=== PATIENT | male | born 1950 | race African-American/Black ===

== ENCOUNTER 2016-08-28 13:57 | Emergency (ER) | payer OTHER ==
[2016-08-28] MEDS ORDERED: traMADol HCl 50 MG TAB ONE (14:47)
[2016-08-28] MEDS ORDERED: Benzonatate 100 MG CAP ONE (14:47)
[2016-08-28] MEDS ORDERED: Azithromycin 250 MG TAB ONE (14:47)
--- NOTE | 2016-08-28 15:09 | ERRECORD ---
[facility] EMERGENCY RECORD HPI COUGH (14:40 LLDO) CHIEF COMPLAINT: Patient presents for evaluation of cough, productive of yellow sputum, Patient presents for evaluation of chest congestion. HISTORIAN: History provided by patient, also having flare of chronic arthritis, especially in shoulders. can't sleep d.t. pain. LOCATION: Symptoms are generalized. QUALITY: Denies choking sensation, Denies tightness, Denies wheezing, Pain is dull in nature, described as aching, described as SHARPER WITH COUGHING OR PALPATION. SEVERITY: Maximum severity of symptoms moderate, Currently symptoms are moderate. TIME COURSE: Gradual onset of symptoms, Symptoms are worsening, are constant. ASSOCIATED WITH: Associated symptoms reviewed. EXACERBATED BY: Patient's condition exacerbated by exercise. RELIEVED BY: Patient's condition relieved by nothing. ROS CONSTITUTIONAL: Historian reports fatigue, reports malaise. (14:43 LLDO) EYES: Negative eye review of systems, Historian denies eye pain, denies eye redness, denies eye discharge. (14:50 LLDO) ENT: Historian reports sore throat. (14:43 LLDO) CARDIOVASCULAR: Historian reports dyspnea on exertion. (14:43 LLDO) RESPIRATORY: Historian reports cough, reports sputum. described as thick, green, yellow, Historian denies stridor, denies wheezing. (14:43 LLDO) GI: Historian reports abdominal pain. (14:43 LLDO) MUSCULOSKELETAL: Historian reports arthralgias, denies fall, reports injury, denies joint redness, reports joint stiffness, denies joint swelling, reports myalgias, reports neck pain. (14:43 LLDO) NEUROLOGIC: Negative neurologic review of systems, Historian denies confusion, denies focal weakness, denies mental status changes, denies sensory changes. (14:50 LLDO) HEMO/LYMPHATIC: Normal hematologic/lymphatic system review, Historian denies abnormal blood clotting, denies gum bleeding, denies petechiae. (14:50 LLDO) ALLERGIC/IMMUNOLOGIC: Normal allergy/immunologic system review, Historian denies eczema, denies environmental allergies, denies food allergies. (14:50 LLDO) PSYCHIATRIC: Negative psychiatric review of systems, Historian denies alcohol abuse, denies anxiety, denies depression, denies drug abuse, denies hallucinations. (14:50 LLDO) NOTES: All systems reviewed, negative except as described above. (14:43 LLDO) &a-1R&a+25V*p+0X*e2828F*c202B*c15G*c2P*p-0X&a-25V&a+1R Name: Luigi Gutierrez : 1950 M66 MedRec: [id number] AcctNum: [id number] Prepared: Amna Aug 28, 2016 15:10 by Interface Page 1 of 4 pMD [facility] EMERGENCY RECORD PAST MEDICAL HISTORY MEDICAL HISTORY: Tetanus immunization up to date, FLU vaccine not up to date, Pneumococcal vaccine not up to date, MEdical history includes cardiac history, Past medical history includes history of diabetes, Type II, Past medical history includes history of hyperlipidemia, high cholesterol, Past medical history includes history of hypertension, which has been treated. 7 COPD. Past medical history is not significant. ([place] Aug 28, 2016 14:05 MDEB) MALE SURGICAL HISTORY: Surgical history of orthopedic surgery, LEFT KNEE. HERNIA REPAIR TO RIGHT GROIN. ([place] Aug 28, 2016 14:05 MDEB) SOCIAL HISTORY: Patient denies alcohol use, Patient denies drug use, Patient currently uses tobacco, Smokes cigars daily, Patient smokes 1 pack per day. Patient drinks socially. ([place] Aug 28, 2016 14:05 MDEB) FAMILY HISTORY: Family istory is not significant. ([place] Aug 28, 2016 14:05 MDEB) NOTES: Nursing records reviewed, Agree with nursing records, Medication list reviewed. (14:49 LLDO) KNOWN ALLERGIES Penicillins CURRENT MEDICATIONS No recorded medications VITAL SIGNS (14:03 MDEB) VITAL SIGNS: BP: 179/118, Pulse: 112, Resp: 20, Temp: 98.3 (Tympanic), O2 sat: 100, Time: 08/28/2016 14:03. PHYSICAL EXAM CONSTITUTIONAL: Vital Signs Reviewed, Patient afebrile, Pulse, tachycardic, 112, Blood pressure, BP IS ELEVATED. didn't take his meds this morning, Respiratory rate normal, Normal pulse oximetry, Patient appears, uncomfortable, Patient appears, in moderate pain distress, Patient alert and oriented to person, place and time, Nursing notes reviewed. (14:45 LLDO) HEAD: Head exam normal, Head exam included findings of head atraumatic, normocephalic. (14:50 LLDO) EYES: Eye exam normal, Eye exam included findings of eyelids normal to inspection, Pupils equally round and reactive to light, Extraocular muscles intact. (14:50 LLDO) ENT: Ear exam normal, Nose exam normal, Pharynx, injected bilaterally, Uvula exam normal, Mouth exam normal, teeth normal, Sinus exam included findings of frontal sinuses normal, Maxillary sinuses with. (14:45 LLDO) NECK: Neck exam included findings of normal range of motion, &a-1R&a+25V*p+0X*m4541F*c202B*c15G*c2P*p-0X&a-25V&a+1R Name: Luigi Gutierrez : 1950 M66 MedRec: [id number] AcctNum: [id number] Prepared: Amna Aug 28, 2016 15:10 by Interface Page 2 of 4 pMD [facility] EMERGENCY RECORD Trachea midline, Thyroid normal, no meningeal signs, no cervical adenopathy, Tenderness, midline, to the paraspinal muscles. (14:45 LLDO) RESPIRATORY CHEST: Respiratory exam included findings of no respiratory distress. (14:45 LLDO) CARDIOVASCULAR: Cardiovascular assessment normal, Cardiovascular exam included findings of heart rate regular rate and rhythm, Heart sounds normal. (14:50 LLDO) ABDOMEN MALE: Abdominal exam normal, Abdominal exam included findings of abdomen nontender, Bowel sounds normal, no peritoneal signs. (14:50 LLDO) BACK: Back exam normal, Back exam included findings of normal inspection, range of motion normal. (14:50 LLDO) UPPER EXTREMITY: Upper extremity exam included findings of inspection normal, Range of motion, limited to bilateral shoulders, right side worse, Motor strength normal, Sensation intact, Brachial pulse normal, Radial pulse normal. (14:45 LLDO) LOWER EXTREMITY: Lower extremity exam normal, Lower extremity exam included findings of inspection normal, Range of motion normal. (14:50 LLDO) NEURO: Neuro exam normal, Neuro exam findings include patient oriented to person, place and time, Speech normal, [place] coma scale 15. (14:50 LLDO) SKIN: Skin exam normal, Skin exam included findings of skin warm, dry, and normal in color, no rash. (14:50 LLDO) PSYCHIATRIC: Psychiatric exam normal, Psychiatric exam included findings of patient oriented to person place and time, Normal affect, Judgment normal. (14:50 LLDO) MEDICATION ADMINISTRATION SUMMARY Drug Name: Zithromax oral, Dose Ordered: 500 mg, Route: Oral, Status: Given, Time: 14:49 08/28/2016, Drug Name: Ina Perles, Dose Ordered: 200 mg, Route: Oral, Status: Given, Time: 14:48 08/28/2016, Drug Name: Ultram, Dose Ordered: 2 tab(s), Route: Oral, Status: Given, Time: 14:48 08/28/2016, Detailed record available in Medication Service section. PROBLEM LIST No recorded problems DIAGNOSIS (14:56 LLDO) FINAL: PRIMARY: Acute bronchitis, ADDITIONAL: Hypertension, Osteoarthritis. PRESCRIPTION Phenergan DM: SYRUP : : ORAL : Quantity: 1-2 Unit: teaspoon Route: ORAL Schedule: every 4 hours prn Dispense: 180 &a-1R&a+25V*p+0X*g9965O*c202B*c15G*c2P*p-0X&a-25V&a+1R Name: Luigi Gutierrez : 1950 M66 MedRec: [id number] AcctNum: [id number] Prepared: Amna Aug 28, 2016 15:10 by Interface Page 3 of 4 pMD [facility] EMERGENCY RECORD Unit: mL May substitute. Refills: 2 . (14:39 LLDO) NOTES: No Refills. (14:39 LLDO) predniSONE oral: TABLET : 20 mg : ORAL : Quantity: * Unit: Route: ORAL Schedule: See Notes Dispense: 2O May substitute. Refills: No Refills . (14:39 LLDO) NOTES: 3 TABS PER DAY FOR 3 DAYS, THEN 2 TABS PER DAY FOR 3 DAYS, THEN ONE TAB PER DAY UNTIL GONE No Refills. (14:39 LLDO) Zithromax Z-Dallin: CAPSULE (HARD, SOFT, ETC.) : 250 mg : ORAL : Quantity: * Unit: Route: ORAL Schedule: See Notes Dispense: 1PK May substitute. Refills: No Refills . (14:39 LLDO) NOTES: TAKE DIRECTED ON PACKAGE No Refills. (14:39 LLDO) Ultram: TABLET : 50 mg : ORAL : Quantity: 1-2 Unit: tab(s) Route: ORAL Schedule: every 4 hours prn Dispense: 100 Unit: tab(s) May substitute. Refills: 2 . (14:53 LLDO) NOTES: No Refills. (14:53 LLDO) DISPOSITION PATIENT: Disposition Type: Discharge, Disposition: *Discharge Home. (14:38 LLDO) Patient left the department. (15:08 MDJT) [place]: RICHARDDO=MD Pravin, Nguyễn MDEB=ROBERT Burnette, Jeana &a-1R&a+25V*p+0X*v9244E*c202B*c15G*c2P*p-0X&a-25V&a+1R Name: Luigi Gutierrez : 1950 M66 MedRec: [id number] AcctNum: [id number] Prepared: Amna Aug 28, 2016 15:10 by Interface Page 4 of 4 pMD MTDD
--- NOTE | 2016-08-28 15:20 | PICIS ---
[facility] EMERGENCY RECORD TRIAGE (MonAug 28, 2016 14:05 MDEB) PATIENT: NAME: Luigi Gutierrez, AGE: 66, GENDER: male, : Mon1950, TIME OF GREET: MonAug 28, 2016 13:58, PREFERRED LANGUAGE: Bengali, RACE: Black or , ETHNICITY: Not or , FALL RISK: NO, ECODE BILLING MAP: [facility] ER, SSN: [id number], Zip Code: [address], KG WEIGHT: 83.01, PHONE: , , , PERSON ID: [id number], PCP: OR CLINIC CASE. (MonAug 28, 2016 14:05 MDEB) TRIAGE NOTES: PRODUCTIVE COUGH, CONGESTION, AARTHRITIS PAIN IN SHOULDERS WORSE. (MonAug 28, 2016 14:05 MDEB) COMPLAINT: PAIN IN NECK/SHOULDERS. (MonAug 28, 2016 14:05 MDEB) ADMISSION: URGENCY: 4 Non Urgent, ADMISSION SOURCE: Home, TRANSPORT: Walk-in, BED: TRIAGE. (MonAug 28, 2016 14:05 MDEB) PAIN: Patient complains of pain described as, aching, on a scale 0-10 patient rates pain as 8. (MonAug 28, 2016 14:05 MDEB) IMMUNIZATIONS: Tetanus immunization up to date. (MonAug 28, 2016 14:05 MDEB) TRIAGE SCREENING: Patient denies suicidal ideation, Patient denies presence of domestic violence. (MonAug 28, 2016 14:05 MDEB) PROVIDERS: TRIAGE NURSE: Jeana Burnette RN. (MonAug 28, 2016 14:05 MDEB) VITAL SIGNS: BP 179/118, Pulse 112, Resp 20, Temp 98.3, (Tympanic), O2 Sat 100, Time 08/28/2016 14:03. (14:03 MDEB) PREVIOUS VISIT ALLERGIES: Penicillins. (MonAug 28, 2016 14:05 MDEB) KNOWN ALLERGIES Penicillins CURRENT MEDICATIONS No recorded medications VITAL SIGNS (14:03 MDEB) VITAL SIGNS: BP: 179/118, Pulse: 112, Resp: 20, Temp: 98.3 (Tympanic), O2 sat: 100, Time: 08/28/2016 14:03. NURSING PROCEDURE: DISCHARGE NOTE (14:55 MDEB) DISCHARGE: Patient discharged to home, ambulating without assistance, driving self, unaccompanied, Summary of Care printed/ provided, Patient requested and was provided an electronic copy of Discharge Instructions, Transition record given to patient, Discharge instructions given to patient, Simple or moderate discharge teaching performed, MEDICATIONS, Prescriptions given and instructions on side effects given, Above person(s) verbalized understanding of discharge instructions and follow-up care, Patient treated and evaluated by physician. BELONGINGS: Belongings remain with patient, Valuables remain with patient. &a-1R&a+25V*p+0X*a9037C*c202B*c15G*c2P*p-0X&a-25V&a+1R Name: Luigi Gutierrez : 1950 M66 MedRec: [id number] AcctNum: [id number] Prepared: Amna Aug 28, 2016 15:10 by Interface Page [address] [facility] EMERGENCY RECORD NOTES: Emotional support needed and given, Patient tolerated procedure well. SAFETY: Side rails up, Cart/Stretcher in lowest position, Family at bedside, Call light within reach, Hospital ID band on. MEDICATION ADMINISTRATION SUMMARY Drug Name: Zithromax oral, Dose Ordered: 500 mg, Route: Oral, Status: Given, Time: 14:49 08/28/2016, Drug Name: Tessalon Perles, Dose Ordered: 200 mg, Route: Oral, Status: Given, Time: 14:48 08/28/2016, Drug Name: Ultram, Dose Ordered: 2 tab(s), Route: Oral, Status: Given, Time: 14:48 08/28/2016, Detailed record available in Medication Service section. MEDICATION SERVICE Tessalon Perles: Order: Tessalon Perles (benzonatate) - Dose: 200 mg : Oral Schedule: Now Ordered by: Nguyễn Costello MD Entered by: MD Amna Piper Aug 28, 2016 14:36 , Acknowledged by: ROBERT Hunter Aug 28, 2016 14:46 Documented as given by: ROBERT Hunter Aug 28, 2016 14:48 Patient, Medication, Dose, Route and Time verified prior to administration. Amount given: 200 MG, Site: Medication administered P.O., Correct patient, time, route, dose and medication confirmed prior to administration, Patient advised of actions and side-effects prior to administration, Allergies confirmed and medications reviewed prior to administration, Patient in position of comfort, Cart in lowest position. Ultram: Order: Ultram (tramadol HCl) - Dose: 2 tab(s) : Oral Schedule: Now Ordered by: Nguyễn Costello MD Entered by: MD Amna Piper Aug 28, 2016 14:36 , Acknowledged by: ROBERT Hunter Aug 28, 2016 14:46 Documented as given by: ROBERT Hunter Aug 28, 2016 14:48 Patient, Medication, Dose, Route and Time verified prior to administration. Amount given: 2 TABS, Site: Medication administered P.O., Correct patient, time, route, dose and medication confirmed prior to administration, Patient advised of actions and side-effects prior to administration, Allergies confirmed and medications reviewed prior to administration, Patient in position of comfort, Cart in lowest position. Zithromax oral: Order: Zithromax oral (azithromycin) - Dose: 500 mg : Oral Schedule: Now Ordered by: Nguyễn Costello MD &a-1R&a+25V*p+0X*g9508H*c202B*c15G*c2P*p-0X&a-25V&a+1R Name: Luigi Gutierrez : 1950 M66 MedRec: [id number] AcctNum: [id number] Prepared: Amna Aug 28, 2016 15:10 by Interface Page [address] [facility] EMERGENCY RECORD Entered by: MD Amna Piper Aug 28, 2016 14:36 Documented as given by: ROBERT Hunter Aug 28, 2016 14:49 Patient, Medication, Dose, Route and Time verified prior to administration. Amount given: 500 MG, Site: Medication administered P.O., Correct patient, time, route, dose and medication confirmed prior to administration, Patient advised of actions and side-effects prior to administration, Allergies confirmed and medications reviewed prior to administration, Patient in position of comfort, Cart in lowest position. HPI COUGH (14:40 LLDO) CHIEF COMPLAINT: Patient presents for evaluation of cough, productive of yellow sputum, Patient presents for evaluation of chest congestion. HISTORIAN: History provided by patient, also having flare of chronic arthritis, especially in shoulders. can't sleep d.t. pain. LOCATION: Symptoms are generalized. QUALITY: Denies choking sensation, Denies tightness, Denies wheezing, Pain is dull in nature, described as aching, described as SHARPER WITH COUGHING OR PALPATION. SEVERITY: Maximum severity of symptoms moderate, Currently symptoms are moderate. TIME COURSE: Gradual onset of symptoms, Symptoms are worsening, are constant. ASSOCIATED WITH: Associated symptoms reviewed. EXACERBATED BY: Patient's condition exacerbated by exercise. RELIEVED BY: Patient's condition relieved by nothing. ROS CONSTITUTIONAL: Historian reports fatigue, reports malaise. (14:43 LLDO) EYES: Negative eye review of systems, Historian denies eye pain, denies eye redness, denies eye discharge. (14:50 LLDO) ENT: Historian reports sore throat. (14:43 LLDO) CARDIOVASCULAR: Historian reports dyspnea on exertion. (14:43 LLDO) RESPIRATORY: Historian reports cough, reports sputum. described as thick, green, yellow, Historian denies stridor, denies wheezing. (14:43 LLDO) GI: Historian reports abdominal pain. (14:43 LLDO) MUSCULOSKELETAL: Historian reports arthralgias, denies fall, reports injury, denies joint redness, reports joint stiffness, denies joint swelling, reports myalgias, reports neck pain. (14:43 LLDO) NEUROLOGIC: Negative neurologic review of systems, Historian denies confusion, denies focal weakness, denies mental status changes, denies sensory changes. (14:50 LLDO) &a-1R&a+25V*p+0X*s0358T*c202B*c15G*c2P*p-0X&a-25V&a+1R Name: Luigi Gutierrez : 1950 M66 MedRec: [id number] AcctNum: [id number] Prepared: Amna Aug 28, 2016 15:10 by Interface Page [address] [facility] EMERGENCY RECORD HEMO/LYMPHATIC: Normal hematologic/lymphatic system review, Historian denies abnormal blood clotting, denies gum bleeding, denies petechiae. (14:50 LLDO) ALLERGIC/IMMUNOLOGIC: Normal allergy/immunologic system review, Historian denies eczema, denies environmental allergies, denies food allergies. (14:50 LLDO) PSYCHIATRIC: Negative psychiatric review of systems, Historian denies alcohol abuse, denies anxiety, denies depression, denies drug abuse, denies hallucinations. (14:50 LLDO) NOTES: All systems reviewed, negative except as described above. (14:43 LLDO) PAST MEDICAL HISTORY MEDICAL HISTORY: Tetanus immunization up to date, FLU vaccine not up to date, Pneumococcal vaccine not up to date, MEdical history includes cardiac history, Past medical history includes history of diabetes, Type II, Past medical history includes history of hyperlipidemia, high cholesterol, Past medical history includes history of hypertension, which has been treated. 7 COPD. Past medical history is not significant. ([place] Aug 28, 2016 14:05 MDEB) MALE SURGICAL HISTORY: Surgical history of orthopedic surgery, LEFT KNEE. HERNIA REPAIR TO RIGHT GROIN. ([place] Aug 28, 2016 14:05 MDEB) SOCIAL HISTORY: Patient denies alcohol use, Patient denies drug use, Patient currently uses tobacco, Smokes cigars daily, Patient smokes 1 pack per day. Patient drinks socially. ([place] Aug 28, 2016 14:05 MDEB) FAMILY HISTORY: Family istory is not significant. ([place] Aug 28, 2016 14:05 MDEB) NOTES: Nursing records reviewed, Agree with nursing records, Medication list reviewed. (14:49 LLDO) PHYSICAL EXAM CONSTITUTIONAL: Vital Signs Reviewed, Patient afebrile, Pulse, tachycardic, 112, Blood pressure, BP IS ELEVATED. didn't take his meds this morning, Respiratory rate normal, Normal pulse oximetry, Patient appears, uncomfortable, Patient appears, in moderate pain distress, Patient alert and oriented to person, place and time, Nursing notes reviewed. (14:45 LLDO) HEAD: Head exam normal, Head exam included findings of head atraumatic, normocephalic. (14:50 LLDO) EYES: Eye exam normal, Eye exam included findings of eyelids normal to inspection, Pupils equally round and reactive to light, Extraocular muscles intact. (14:50 LLDO) ENT: Ear exam normal, Nose exam normal, Pharynx, injected bilaterally, Uvula exam normal, Mouth exam normal, teeth normal, Sinus exam included findings of frontal sinuses normal, Maxillary sinuses with. (14:45 LLDO) &a-1R&a+25V*p+0X*g2129T*c202B*c15G*c2P*p-0X&a-25V&a+1R Name: Luigi Gutierrez : 1950 M66 MedRec: [id number] AcctNum: [id number] Prepared: Amna Aug 28, 2016 15:10 by Interface Page [address] [facility] EMERGENCY RECORD NECK: Neck exam included findings of normal range of motion, Trachea midline, Thyroid normal, no meningeal signs, no cervical adenopathy, Tenderness, midline, to the paraspinal muscles. (14:45 LLDO) RESPIRATORY CHEST: Respiratory exam included findings of no respiratory distress. (14:45 LLDO) CARDIOVASCULAR: Cardiovascular assessment normal, Cardiovascular exam included findings of heart rate regular rate and rhythm, Heart sounds normal. (14:50 LLDO) ABDOMEN MALE: Abdominal exam normal, Abdominal exam included findings of abdomen nontender, Bowel sounds normal, no peritoneal signs. (14:50 LLDO) BACK: Back exam normal, Back exam included findings of normal inspection, range of motion normal. (14:50 LLDO) UPPER EXTREMITY: Upper extremity exam included findings of inspection normal, Range of motion, limited to bilateral shoulders, right side worse, Motor strength normal, Sensation intact, Brachial pulse normal, Radial pulse normal. (14:45 LLDO) LOWER EXTREMITY: Lower extremity exam normal, Lower extremity exam included findings of inspection normal, Range of motion normal. (14:50 LLDO) NEURO: Neuro exam normal, Neuro exam findings include patient oriented to person, place and time, Speech normal, [place] coma scale 15. (14:50 LLDO) SKIN: Skin exam normal, Skin exam included findings of skin warm, dry, and normal in color, no rash. (14:50 LLDO) PSYCHIATRIC: Psychiatric exam normal, Psychiatric exam included findings of patient oriented to person place and time, Normal affect, Judgment normal. (14:50 LLDO) EVENTS TRANSFER: Triage to Emergency Triage. ([place]na Aug 28, 2016 14:05 MDEB) Emergency Triage to Main ED -03. (14:05 MDEB) Removed from Emergency Main ED -03. (15:08 MDEB) PROBLEM LIST No recorded problems DIAGNOSIS (14:56 LLDO) FINAL: PRIMARY: Acute bronchitis, ADDITIONAL: Hypertension, Osteoarthritis. DISPOSITION PATIENT: Disposition Type: Discharge, Disposition: *Discharge Home. (14:38 LLDO) Patient left the department. (15:08 MDEB) INSTRUCTION (14:40 LLDO) &a-1R&a+25V*p+0X*x5213K*c202B*c15G*c2P*p-0X&a-25V&a+1R Name: Luigi Gutierrez : 1950 M66 MedRec: [id number] AcctNum: [id number] Prepared: Amna Aug 28, 2016 15:10 by Interface Page [address] [facility] EMERGENCY RECORD DISCHARGE: BRONCHITIS, ABX TX (ADULT), ARTHRITIS OSTEO. FOLLOWUP: Follow up with Primary Care Physician in 10-14 days. SPECIAL: Follow-up with your PCP. PRESCRIPTION Phenergan DM: SYRUP : : ORAL : Quantity: 1-2 Unit: teaspoon Route: ORAL Schedule: every 4 hours prn Dispense: 180 Unit: mL May substitute. Refills: 2 . (14:39 LLDO) NOTES: No Refills. (14:39 LLDO) predniSONE oral: TABLET : 20 mg : ORAL : Quantity: * Unit: Route: ORAL Schedule: See Notes Dispense: 2O May substitute. Refills: No Refills . (14:39 LLDO) NOTES: 3 TABS PER DAY FOR 3 DAYS, THEN 2 TABS PER DAY FOR 3 DAYS, THEN ONE TAB PER DAY UNTIL GONE No Refills. (14:39 LLDO) Zithromax Z-Dallin: CAPSULE (HARD, SOFT, ETC.) : 250 mg : ORAL : Quantity: * Unit: Route: ORAL Schedule: See Notes Dispense: 1PK May substitute. Refills: No Refills . (14:39 LLDO) NOTES: TAKE DIRECTED ON PACKAGE No Refills. (14:39 LLDO) Ultram: TABLET : 50 mg : ORAL : Quantity: 1-2 Unit: tab(s) Route: ORAL Schedule: every 4 hours prn Dispense: 100 Unit: tab(s) May substitute. Refills: 2 . (14:53 LLDO) NOTES: No Refills. (14:53 LLDO) IMAGING *DISCHARGE INSTRUCTIONS RECEIPT: Image captured from scanner. (14:58 MDEB) *SUPPLY CHARGE SHEET: Image captured from scanner. (14:59 MDEB) ADMIN (14:56 LLDO) DIGITAL SIGNATURE: MD Costello Lloyd. Griggs: ALIE=MD Costello Lloyd MDEB=ROBERT Burnette, Jeana &a-1R&a+25V*p+0X*d2690E*c202B*c15G*c2P*p-0X&a-25V&a+1R Name: Matt Luigi : 1950 M66 MedRec: [id number] AcctNum: [id number] Prepared: Amna Aug 28, 2016 15:10 by Interface Page [address] [facility] MEDICATION RECONCILIATION You were seen in the Emergency Department on: Amna Aug 28, 2016 KNOWN ALLERGIES Penicillins MEDICATIONS GIVEN WHILE IN THE EMERGENCY DEPARTMENT Tessalon Perles (benzonatate) - Dose: 200 milligram(s) : Oral Ultram (tramadol HCl) - Dose: 2 tab(s) : Oral Zithromax oral (azithromycin) - Dose: 500 milligram(s) : Oral Notes from the emergency department Reviewed with patient Reviewed with patient PRESCRIPTIONS (4) Printed (4) Phenergan DM : SYRUP : : ORAL Quantity: 1-2, Unit: teaspoon, Route: ORAL, Schedule: every 4 hours prn, Dispense: 180 Unit: milliliter(s) predniSONE oral : TABLET : 20 mg : ORAL Quantity: *, Unit: *, Route: ORAL, Schedule: See Notes, Dispense: 2O Zithromax Z-Dallin : CAPSULE (HARD, SOFT, ETC.) : 250 mg : ORAL Quantity: *, Unit: *, Route: ORAL, Schedule: See Notes, Dispense: 1PK &a-1R&a+25V*p+0X*p5260O*c202B*c15G*c2P*p-0X&a-25V&a+1R Name: Luigi Gutierrez : 1950 M66 MedRec: [id number] AcctNum: [id number] Prepared: Amna Aug 28, 2016 15:10 by Interface pMD MARK
--- NOTE | 2016-08-28 15:20 | PICIS ---
[facility] EMERGENCY RECORD TRIAGE (MonAug 28, 2016 14:05 MDEB) PATIENT: NAME: Luigi Gutierrez, AGE: 66, GENDER: male, : Mon1950, TIME OF GREET: MonAug 28, 2016 13:58, PREFERRED LANGUAGE: Uzbek, RACE: Black or , ETHNICITY: Not or , FALL RISK: NO, ECODE BILLING MAP: [facility] ER, SSN: [id number], Zip Code: [id number], KG WEIGHT: 83.01, PHONE: , , , PERSON ID: [id number], PCP: ID CLINIC CASE. (MonAug 28, 2016 14:05 MDEB) TRIAGE NOTES: PRODUCTIVE COUGH, CONGESTION, AARTHRITIS PAIN IN SHOULDERS WORSE. (MonAug 28, 2016 14:05 MDEB) COMPLAINT: PAIN IN NECK/SHOULDERS. (MonAug 28, 2016 14:05 MDEB) ADMISSION: URGENCY: 4 Non Urgent, ADMISSION SOURCE: Home, TRANSPORT: Walk-in, BED: TRIAGE. (MonAug 28, 2016 14:05 MDEB) PAIN: Patient complains of pain described as, aching, on a scale 0-10 patient rates pain as 8. (MonAug 28, 2016 14:05 MDEB) IMMUNIZATIONS: Tetanus immunization up to date. (MonAug 28, 2016 14:05 MDEB) TRIAGE SCREENING: Patient denies suicidal ideation, Patient denies presence of domestic violence. (MonAug 28, 2016 14:05 MDEB) PROVIDERS: TRIAGE NURSE: Jeana Burnette RN. (MonAug 28, 2016 14:05 MDEB) VITAL SIGNS: BP 179/118, Pulse 112, Resp 20, Temp 98.3, (Tympanic), O2 Sat 100, Time 08/28/2016 14:03. (14:03 MDEB) PREVIOUS VISIT ALLERGIES: Penicillins. (MonAug 28, 2016 14:05 MDEB) KNOWN ALLERGIES Penicillins CURRENT MEDICATIONS No recorded medications VITAL SIGNS (14:03 MDEB) VITAL SIGNS: BP: 179/118, Pulse: 112, Resp: 20, Temp: 98.3 (Tympanic), O2 sat: 100, Time: 08/28/2016 14:03. NURSING PROCEDURE: DISCHARGE NOTE (14:55 MDEB) DISCHARGE: Patient discharged to home, ambulating without assistance, driving self, unaccompanied, Summary of Care printed/ provided, Patient requested and was provided an electronic copy of Discharge Instructions, Transition record given to patient, Discharge instructions given to patient, Simple or moderate discharge teaching performed, MEDICATIONS, Prescriptions given and instructions on side effects given, Above person(s) verbalized understanding of discharge instructions and follow-up care, Patient treated and evaluated by physician. BELONGINGS: Belongings remain with patient, Valuables remain with patient. &a-1R&a+25V*p+0X*g1152R*c202B*c15G*c2P*p-0X&a-25V&a+1R Name: Luigi Gutierrez : 1950 M66 MedRec: [id number] AcctNum: [id number] Prepared: Amna Aug 28, 2016 15:10 by Interface Page 1 of 6 pMD [facility] EMERGENCY RECORD NOTES: Emotional support needed and given, Patient tolerated procedure well. SAFETY: Side rails up, Cart/Stretcher in lowest position, Family at bedside, Call light within reach, Hospital ID band on. MEDICATION ADMINISTRATION SUMMARY Drug Name: Zithromax oral, Dose Ordered: 500 mg, Route: Oral, Status: Given, Time: 14:49 08/28/2016, Drug Name: Tessalon Perles, Dose Ordered: 200 mg, Route: Oral, Status: Given, Time: 14:48 08/28/2016, Drug Name: Ultram, Dose Ordered: 2 tab(s), Route: Oral, Status: Given, Time: 14:48 08/28/2016, Detailed record available in Medication Service section. MEDICATION SERVICE Tessalon Perles: Order: Tessalon Perles (benzonatate) - Dose: 200 mg : Oral Schedule: Now Ordered by: Nguyễn Costello MD Entered by: MD Amna Piper Aug 28, 2016 14:36 , Acknowledged by: ROBERT Hunter Aug 28, 2016 14:46 Documented as given by: ROBERT Hunter Aug 28, 2016 14:48 Patient, Medication, Dose, Route and Time verified prior to administration. Amount given: 200 MG, Site: Medication administered P.O., Correct patient, time, route, dose and medication confirmed prior to administration, Patient advised of actions and side-effects prior to administration, Allergies confirmed and medications reviewed prior to administration, Patient in position of comfort, Cart in lowest position. Ultram: Order: Ultram (tramadol HCl) - Dose: 2 tab(s) : Oral Schedule: Now Ordered by: Nguyễn Costello MD Entered by: MD Amna Piper Aug 28, 2016 14:36 , Acknowledged by: ROBERT Hunter Aug 28, 2016 14:46 Documented as given by: ROBERT Hunter Aug 28, 2016 14:48 Patient, Medication, Dose, Route and Time verified prior to administration. Amount given: 2 TABS, Site: Medication administered P.O., Correct patient, time, route, dose and medication confirmed prior to administration, Patient advised of actions and side-effects prior to administration, Allergies confirmed and medications reviewed prior to administration, Patient in position of comfort, Cart in lowest position. Zithromax oral: Order: Zithromax oral (azithromycin) - Dose: 500 mg : Oral Schedule: Now Ordered by: Nguyễn Costello MD &a-1R&a+25V*p+0X*r3194O*c202B*c15G*c2P*p-0X&a-25V&a+1R Name: Luigi Gutierrez : 1950 M66 MedRec: [id number] AcctNum: [id number] Prepared: Amna Aug 28, 2016 15:10 by Interface Page 2 of 6 D [facility] EMERGENCY RECORD Entered by: MD Amna Piper Aug 28, 2016 14:36 Documented as given by: ROBERT Hunter Aug 28, 2016 14:49 Patient, Medication, Dose, Route and Time verified prior to administration. Amount given: 500 MG, Site: Medication administered P.O., Correct patient, time, route, dose and medication confirmed prior to administration, Patient advised of actions and side-effects prior to administration, Allergies confirmed and medications reviewed prior to administration, Patient in position of comfort, Cart in lowest position. HPI COUGH (14:40 LLDO) CHIEF COMPLAINT: Patient presents for evaluation of cough, productive of yellow sputum, Patient presents for evaluation of chest congestion. HISTORIAN: History provided by patient, also having flare of chronic arthritis, especially in shoulders. can't sleep d.t. pain. LOCATION: Symptoms are generalized. QUALITY: Denies choking sensation, Denies tightness, Denies wheezing, Pain is dull in nature, described as aching, described as SHARPER WITH COUGHING OR PALPATION. SEVERITY: Maximum severity of symptoms moderate, Currently symptoms are moderate. TIME COURSE: Gradual onset of symptoms, Symptoms are worsening, are constant. ASSOCIATED WITH: Associated symptoms reviewed. EXACERBATED BY: Patient's condition exacerbated by exercise. RELIEVED BY: Patient's condition relieved by nothing. ROS CONSTITUTIONAL: Historian reports fatigue, reports malaise. (14:43 LLDO) EYES: Negative eye review of systems, Historian denies eye pain, denies eye redness, denies eye discharge. (14:50 LLDO) ENT: Historian reports sore throat. (14:43 LLDO) CARDIOVASCULAR: Historian reports dyspnea on exertion. (14:43 LLDO) RESPIRATORY: Historian reports cough, reports sputum. described as thick, green, yellow, Historian denies stridor, denies wheezing. (14:43 LLDO) GI: Historian reports abdominal pain. (14:43 LLDO) MUSCULOSKELETAL: Historian reports arthralgias, denies fall, reports injury, denies joint redness, reports joint stiffness, denies joint swelling, reports myalgias, reports neck pain. (14:43 LLDO) NEUROLOGIC: Negative neurologic review of systems, Historian denies confusion, denies focal weakness, denies mental status changes, denies sensory changes. (14:50 LLDO) &a-1R&a+25V*p+0X*l4732M*c202B*c15G*c2P*p-0X&a-25V&a+1R Name: Luigi Gutierrez : 1950 M66 MedRec: [id number] AcctNum: [id number] Prepared: Amna Aug 28, 2016 15:10 by Interface Page 3 of 6 pMD [facility] EMERGENCY RECORD HEMO/LYMPHATIC: Normal hematologic/lymphatic system review, Historian denies abnormal blood clotting, denies gum bleeding, denies petechiae. (14:50 LLDO) ALLERGIC/IMMUNOLOGIC: Normal allergy/immunologic system review, Historian denies eczema, denies environmental allergies, denies food allergies. (14:50 LLDO) PSYCHIATRIC: Negative psychiatric review of systems, Historian denies alcohol abuse, denies anxiety, denies depression, denies drug abuse, denies hallucinations. (14:50 LLDO) NOTES: All systems reviewed, negative except as described above. (14:43 LLDO) PAST MEDICAL HISTORY MEDICAL HISTORY: Tetanus immunization up to date, FLU vaccine not up to date, Pneumococcal vaccine not up to date, MEdical history includes cardiac history, Past medical history includes history of diabetes, Type II, Past medical history includes history of hyperlipidemia, high cholesterol, Past medical history includes history of hypertension, which has been treated. 7 COPD. Past medical history is not significant. ([place] Aug 28, 2016 14:05 MDEB) MALE SURGICAL HISTORY: Surgical history of orthopedic surgery, LEFT KNEE. HERNIA REPAIR TO RIGHT GROIN. ([place] Aug 28, 2016 14:05 MDEB) SOCIAL HISTORY: Patient denies alcohol use, Patient denies drug use, Patient currently uses tobacco, Smokes cigars daily, Patient smokes 1 pack per day. Patient drinks socially. ([place] Aug 28, 2016 14:05 MDEB) FAMILY HISTORY: Family istory is not significant. ([place] Aug 28, 2016 14:05 MDEB) NOTES: Nursing records reviewed, Agree with nursing records, Medication list reviewed. (14:49 LLDO) PHYSICAL EXAM CONSTITUTIONAL: Vital Signs Reviewed, Patient afebrile, Pulse, tachycardic, 112, Blood pressure, BP IS ELEVATED. didn't take his meds this morning, Respiratory rate normal, Normal pulse oximetry, Patient appears, uncomfortable, Patient appears, in moderate pain distress, Patient alert and oriented to person, place and time, Nursing notes reviewed. (14:45 LLDO) HEAD: Head exam normal, Head exam included findings of head atraumatic, normocephalic. (14:50 LLDO) EYES: Eye exam normal, Eye exam included findings of eyelids normal to inspection, Pupils equally round and reactive to light, Extraocular muscles intact. (14:50 LLDO) ENT: Ear exam normal, Nose exam normal, Pharynx, injected bilaterally, Uvula exam normal, Mouth exam normal, teeth normal, Sinus exam included findings of frontal sinuses normal, Maxillary sinuses with. (14:45 LLDO) &a-1R&a+25V*p+0X*a9514N*c202B*c15G*c2P*p-0X&a-25V&a+1R Name: Luigi Gutierrez : 1950 M66 MedRec: [id number] AcctNum: [id number] Prepared: Amna Aug 28, 2016 15:10 by Interface Page 4 of 6 pMD [facility] EMERGENCY RECORD NECK: Neck exam included findings of normal range of motion, Trachea midline, Thyroid normal, no meningeal signs, no cervical adenopathy, Tenderness, midline, to the paraspinal muscles. (14:45 LLDO) RESPIRATORY CHEST: Respiratory exam included findings of no respiratory distress. (14:45 LLDO) CARDIOVASCULAR: Cardiovascular assessment normal, Cardiovascular exam included findings of heart rate regular rate and rhythm, Heart sounds normal. (14:50 LLDO) ABDOMEN MALE: Abdominal exam normal, Abdominal exam included findings of abdomen nontender, Bowel sounds normal, no peritoneal signs. (14:50 LLDO) BACK: Back exam normal, Back exam included findings of normal inspection, range of motion normal. (14:50 LLDO) UPPER EXTREMITY: Upper extremity exam included findings of inspection normal, Range of motion, limited to bilateral shoulders, right side worse, Motor strength normal, Sensation intact, Brachial pulse normal, Radial pulse normal. (14:45 LLDO) LOWER EXTREMITY: Lower extremity exam normal, Lower extremity exam included findings of inspection normal, Range of motion normal. (14:50 LLDO) NEURO: Neuro exam normal, Neuro exam findings include patient oriented to person, place and time, Speech normal, [place] coma scale 15. (14:50 LLDO) SKIN: Skin exam normal, Skin exam included findings of skin warm, dry, and normal in color, no rash. (14:50 LLDO) PSYCHIATRIC: Psychiatric exam normal, Psychiatric exam included findings of patient oriented to person place and time, Normal affect, Judgment normal. (14:50 LLDO) EVENTS TRANSFER: Triage to Emergency Triage. (Amna Aug 28, 2016 14:05 MDEB) Emergency Triage to Main ED -03. (14:05 MDEB) Removed from Emergency Main ED -03. (15:08 MDEB) PROBLEM LIST No recorded problems DIAGNOSIS (14:56 LLDO) FINAL: PRIMARY: Acute bronchitis, ADDITIONAL: Hypertension, Osteoarthritis. DISPOSITION PATIENT: Disposition Type: Discharge, Disposition: *Discharge Home. (14:38 LLDO) Patient left the department. (15:08 MDEB) INSTRUCTION (14:40 LLDO) &a-1R&a+25V*p+0X*e9256V*c202B*c15G*c2P*p-0X&a-25V&a+1R Name: Luigi Gutierrez : 1950 M66 MedRec: [id number] AcctNum: [id number] Prepared: Amna Aug 28, 2016 15:10 by Interface Page 5 of 6 pMD [facility] EMERGENCY RECORD DISCHARGE: BRONCHITIS, ABX TX (ADULT), ARTHRITIS OSTEO. FOLLOWUP: Follow up with Primary Care Physician in 10-14 days. SPECIAL: Follow-up with your PCP. PRESCRIPTION Phenergan DM: SYRUP : : ORAL : Quantity: 1-2 Unit: teaspoon Route: ORAL Schedule: every 4 hours prn Dispense: 180 Unit: mL May substitute. Refills: 2 . (14:39 LLDO) NOTES: No Refills. (14:39 LLDO) predniSONE oral: TABLET : 20 mg : ORAL : Quantity: * Unit: Route: ORAL Schedule: See Notes Dispense: 2O May substitute. Refills: No Refills . (14:39 LLDO) NOTES: 3 TABS PER DAY FOR 3 DAYS, THEN 2 TABS PER DAY FOR 3 DAYS, THEN ONE TAB PER DAY UNTIL GONE No Refills. (14:39 LLDO) Zithromax Z-Dallin: CAPSULE (HARD, SOFT, ETC.) : 250 mg : ORAL : Quantity: * Unit: Route: ORAL Schedule: See Notes Dispense: 1PK May substitute. Refills: No Refills . (14:39 LLDO) NOTES: TAKE DIRECTED ON PACKAGE No Refills. (14:39 LLDO) Ultram: TABLET : 50 mg : ORAL : Quantity: 1-2 Unit: tab(s) Route: ORAL Schedule: every 4 hours prn Dispense: 100 Unit: tab(s) May substitute. Refills: 2 . (14:53 LLDO) NOTES: No Refills. (14:53 LLDO) IMAGING *DISCHARGE INSTRUCTIONS RECEIPT: Image captured from scanner. (14:58 MDEB) *SUPPLY CHARGE SHEET: Image captured from scanner. (14:59 MDEB) ADMIN (14:56 LLDO) DIGITAL SIGNATURE: MD Costello Lloyd. [place]: ALIE=MD Costello Lloyd MDEB=ROBERT Burnette, Jeana &a-1R&a+25V*p+0X*r8230G*c202B*c15G*c2P*p-0X&a-25V&a+1R Name: Matt Luigi : 1950 M66 MedRec: [id number] AcctNum: [id number] Prepared: Amna Aug 28, 2016 15:10 by Interface Page 6 of 6 pMD [facility] MEDICATION RECONCILIATION You were seen in the Emergency Department on: Amna Aug 28, 2016 KNOWN ALLERGIES Penicillins MEDICATIONS GIVEN WHILE IN THE EMERGENCY DEPARTMENT Tessalon Perles (benzonatate) - Dose: 200 milligram(s) : Oral Ultram (tramadol HCl) - Dose: 2 tab(s) : Oral Zithromax oral (azithromycin) - Dose: 500 milligram(s) : Oral Notes from the emergency department Reviewed with patient Reviewed with patient PRESCRIPTIONS (4) Printed (4) Phenergan DM : SYRUP : : ORAL Quantity: 1-2, Unit: teaspoon, Route: ORAL, Schedule: every 4 hours prn, Dispense: 180 Unit: milliliter(s) predniSONE oral : TABLET : 20 mg : ORAL Quantity: *, Unit: *, Route: ORAL, Schedule: See Notes, Dispense: 2O Zithromax Z-Dallin : CAPSULE (HARD, SOFT, ETC.) : 250 mg : ORAL Quantity: *, Unit: *, Route: ORAL, Schedule: See Notes, Dispense: 1PK &a-1R&a+25V*p+0X*q3163R*c202B*c15G*c2P*p-0X&a-25V&a+1R Name: Luigi Gutierrez : 1950 M66 MedRec: [id number] AcctNum: [id number] Prepared: Amna Aug 28, 2016 15:10 by Interface pMD MARK
== END 2016-08-28 14:55 | disposition home or self-care (01) ==
LOC: MADERS 13:57
DX: J20.9 Acute bronchitis, unspecified (principal); I10 Essential (primary) hypertension; M19.90 Unspecified osteoarthritis, unspecified site; E11.9 Type 2 diabetes mellitus without complications; J44.9 Chronic obstructive pulmonary disease, unspecified; E78.00 Pure hypercholesterolemia, unspecified; E78.5 Hyperlipidemia, unspecified; F17.210 Nicotine dependence, cigarettes, uncomplicated
CPT/HCPCS: 99282

== ENCOUNTER 2016-12-05 16:32 | Emergency (ER) | payer OTHER ==
[2016-12-05] MEDS ORDERED: Azithromycin 250 MG TAB ONE (17:22)
[2016-12-05] MEDS ORDERED: Naproxen 500 MG TAB ONE (17:22)
== END 2016-12-05 17:30 | disposition home or self-care (01) ==
LOC: MADERS 16:32
DX: J20.9 Acute bronchitis, unspecified (principal); I10 Essential (primary) hypertension; E11.9 Type 2 diabetes mellitus without complications; E78.5 Hyperlipidemia, unspecified; J44.9 Chronic obstructive pulmonary disease, unspecified; F17.210 Nicotine dependence, cigarettes, uncomplicated
CPT/HCPCS: 99283

== ENCOUNTER 2017-08-12 19:22 | Emergency (ER) | payer MEDICARE, OTHER, SELFPAY ==
[2017-08-12] MEDS ORDERED: Amlodipine 5 MG TAB ONE (20:06)
--- NOTE | 2017-08-12 20:24 | CT ---
CT BRAIN WITHOUT CONTRAST 08/12/17 HISTORY: Injury. Fall. COMPARISON: CT brain from 2010. FINDINGS: Moderate periventricular and deep white matter microangiopathic changes. These are advanced from the 2010 examination. No acute hemorrhage or infarct. No midline shift or mass effect. The calvarium is intact. The paranasal sinuses and mastoids are clear. IMPRESSION: Progressive microangiopathic changes. No acute intracranial abnormality. POS: [facility]
== END 2017-08-12 20:38 | disposition home or self-care (01) ==
LOC: MADERS 19:22
DX: S05.11XA Contusion of eyeball and orbital tissues, right eye, initial encounter (principal); E11.9 Type 2 diabetes mellitus without complications; E78.5 Hyperlipidemia, unspecified; I10 Essential (primary) hypertension; J44.9 Chronic obstructive pulmonary disease, unspecified; F17.210 Nicotine dependence, cigarettes, uncomplicated; W01.198A Fall on same level from slipping, tripping and stumbling with subsequent striking against other object, initial encounter; Y92.69 Other specified industrial and construction area as the place of occurrence of the external cause; Y99.0 Civilian activity done for income or pay
CPT/HCPCS: 36416; 70450; 93005

== ENCOUNTER 2017-12-19 00:44 | Emergency (ER) | payer MEDICARE, OTHER ==
[2017-12-19] MEDS ORDERED: HYDROcodone/Acetaminophen 10/325 mg Tablet ONE (01:02)
[2017-12-19] MEDS ORDERED: Acetaminophen 325 MG TAB ONE (01:03)
[2017-12-19] MEDS ORDERED: Cyclobenzaprine 10 MG TAB ONE (01:03)
[2017-12-19] MEDS ORDERED: Ibuprofen 800 MG TAB ONE (01:03)
== END 2017-12-19 01:10 | disposition home or self-care (01) ==
LOC: MADERS 00:44
DX: M54.6 Pain in thoracic spine (principal); E11.9 Type 2 diabetes mellitus without complications; E78.5 Hyperlipidemia, unspecified; I10 Essential (primary) hypertension; J44.9 Chronic obstructive pulmonary disease, unspecified; F17.210 Nicotine dependence, cigarettes, uncomplicated; Z79.899 Other long term (current) drug therapy
CPT/HCPCS: 99283

== ENCOUNTER 2018-12-03 10:01 | Outpatient (CLI) | payer MEDICARE, OTHER ==
--- NOTE | 2018-12-03 11:31 | RAD ---
CERVICAL SPINE SERIES 5 VIEWS: Date: 12/03/18 HISTORY: Neck pain. FINDINGS: There is prominent anterior osteophytic change along the course of the cervical spine. This is a stab le finding as compared to a 2014 study. Vertebral bodies are normal in height. Disc spaces all appear well preserved. No soft tissue swelling. There is no significant motion in either the flexion or ext ension views. IMPRESSION: Prominent anterior osteophytic change along the cervical spine is stable. POS: [facility]
== END 2018-12-03 10:02 | disposition home or self-care (01) ==
LOC: MADRAD 10:01
PROVIDERS: ATTEND Neurological Surgery
DX: M54.12 Radiculopathy, cervical region (principal)
CPT/HCPCS: 72050

== ENCOUNTER 2021-07-21 10:12 | Emergency (ER) | payer OTHER ==
[2021-07-22 13:16] LABS: SARS-CoV-2 PCR by NAA Not Detected (NotDetected)
== END 2021-07-21 10:42 | disposition home or self-care (01) ==
LOC: MADERS 10:12
DX: J06.9 Acute upper respiratory infection, unspecified (principal); M54.2 Cervicalgia; G89.29 Other chronic pain; R11.0 Nausea; R19.7 Diarrhea, unspecified; I10 Essential (primary) hypertension; E11.9 Type 2 diabetes mellitus without complications; E78.5 Hyperlipidemia, unspecified; E78.00 Pure hypercholesterolemia, unspecified; J44.9 Chronic obstructive pulmonary disease, unspecified; I25.10 Atherosclerotic heart disease of native coronary artery without angina pectoris; F17.210 Nicotine dependence, cigarettes, uncomplicated; Z20.822 Contact with and (suspected) exposure to COVID-19; Z95.5 Presence of coronary angioplasty implant and graft
CPT/HCPCS: 99283; U0003; U0005

== ENCOUNTER 2023-03-20 09:37 | Emergency (ER) | payer OTHER ==
[2023-03-20 11:49] LABS: ALT (SGPT) 9 U/L (8-55); AST (SGOT) 17 U/L (5-34); Albumin 2.8 g/dL (3.4-4.8); Alkaline Phosphatase 84 U/L (40-110); Anion Gap 16 mmol/L (10-20); BUN (Urea Nitrogen) 15 mg/dL (8.4-25.7); Bilirubin, Total 0.2 mg/dL (0.2-1.2); Calc. Creatinine Clearance 0 mL/min (70-130); Calcium 8.9 mg/dL (7.8-10.44); Carbon Dioxide 24 mmol/L (23-31); Chloride 107 mmol/L (98-107); Estimated GFR 95; Globulin 4.8 g/dL (2.4-3.5); Glucose 90 mg/dL (83-110); Potassium 4.7 mmol/L (3.5-5.1); Protein, Total 7.6 g/dL (5.8-8.1); Sodium 142 mmol/L (136-145)
[2023-03-20 11:50] LABS: Band 9 % (5-11); Hematocrit 39.8 % (42.0-52.0); Hemoglobin 12.4 g/dL (14.0-18.0); Hypochromia SLIGHT = 6-15 cells (100X) (0-5/hpf); Lymphocytes 14 % (21-51); MDiff Complete? YES; Mean Corpuscular HGB CONC 31.1 g/dL (32.0-36.0); Mean Corpuscular Hemoglobin 25.5 pg (27.0-31.0); Mean Corpuscular Volume 81.9 fl (78.0-98.0); Mean Platelet Volume 6.8 fL (7.4-10.4); Monocytes 5 % (0-10); Neutrophil 72 % (42-75); Platelet Adequacy Comment Appears Increased; Platelet Count 429 10x3/uL (130-400); Red Blood Cell (RBC) Count 4.86 mill/uL (4.70-6.10); White Blood Cell (WBC) Count 8.1 10x3/uL (4.8-10.8)
[2023-03-20 11:51] LABS: Troponin I Less than 0.010 ng/mL (< 0.028)
== END 2023-03-20 14:59 | disposition home or self-care (01) ==
LOC: MADERS 09:37
DX: I87.2 Venous insufficiency (chronic) (peripheral) (principal); R91.8 Other nonspecific abnormal finding of lung field; I10 Essential (primary) hypertension; E11.9 Type 2 diabetes mellitus without complications; J44.9 Chronic obstructive pulmonary disease, unspecified; I25.10 Atherosclerotic heart disease of native coronary artery without angina pectoris; F17.210 Nicotine dependence, cigarettes, uncomplicated; Z95.5 Presence of coronary angioplasty implant and graft; Z79.82 Long term (current) use of aspirin
CPT/HCPCS: 71045; 71250; 80053; 83880; 84484; 85025; 93005